=== PATIENT | female | born 1980 | race Caucasian/White ===

== ENCOUNTER 2017-05-07 14:17 | Emergency (ER) | payer OTHER, MEDICARE, MEDICAID ==
[~2017-05-07] VITALS: Ht 172.7 cm; Wt 72.6 kg
[~2017-05-07 14:17] MED LIST: ABILIFY20 MG PO; ALBUTEROL-200 PUFFS/ IH; ARIPIPRAZO10 MG/TABL PO; DOXYCYCLINE HY100 M3 PO; ETODOLAC400 MG PO; FLEXERIL10 MG PO; HYCODAN COUMPO473 ML PO; HYDROCODONE-APA1 TA1 PO; HYDROCODONE1 TABLE1 PO; HYDROCODONE1 TABLET PO; IBU-8800 MG PO; LORTAB 5/500 501 TAB PO; MEDROL 4MG. DOSE4 MG PO; MOTRIN400 MG PO; NAPROSYN 500MG500 MG PO; NOMEDS; NOMEDS XX; NORCO 325 MG-51 TAB PO; PAROXETINE HCL20 MG NG; PAXIL20 MG PO; PHENERGAN 25MG.25 M1 PO; PREDNISONE 20MG20 MG PO; PREMARIN 0.60.625 MG PO; REQUIP 1 MG TABL1 MG FT; ROPINIROLE HYDRO1 MG PO; TORADOL10 M1 PO; TORADOL10 MG PO; TRAMADOL 50MG T50 MG PO; TYLENOL ES500 MG PO; VICODIN1 TAB PO; Zofran4 MG PO
--- NOTE | 2017-05-07 14:41 | Emergency Room Report ---
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 N Clinical Suspician of Infection? N Mental Status: 1 - Regular (Normal Baseline) Sepsis Risk:Low Sepsis Risk Have you (or family members/close friends) recently traveled outside the [place]? N If Yes, where/when: Have you had exposure to infectious disease within the past month? N TB? Other? Specify: This is 37 yrs old wf brought by police due to drug use needing medical clearance for Shelter, she complained of cough and productive black, and it hurts when she cough. she denies hemoptysis, NVD. she denies palpitation. The patient claims that she has breast cancer and she has not received therapy and 6 months, also she has not seen her primary care physician in a year. Source patient, RN notes reviewed, police Exam Limitations no limitations ALLERGIES Coded Allergies: No Known Allergies (06/02/16) Home Medications Active Scripts HYDROCODONE/ACETAMINOPHEN (Vicodin 5-300 MG Tablet) 1 TAB PO Q6HP PRN pain #10 TAB Prov: 06/05/16 Albuterol (Albuterol-Hfa Inhaler) 2 PUFF IH Q4HP PRN SOB #1 INH Prov: 05/04/14 Reported Medications Conjugated Estrogens (Premarin 0.625MG) 0.625 MG PO DAILY ROPINIROLE HCL (Ropinirole 1MG) 1 MG PO QHS PAROXETINE HCL (Paroxetine Hcl) 20 MG NG DAILY #30 Aripiprazole 10 MG PO DAILY #30 MISCELLANEOUS (UNKNOWN MEDICATION) 1 KIM TP PRN SORE THROAT HYDROCODONE BIT/HOMATROP ME-BR (Hydromet Syrup) 473 ML PO Q6HP PRN COUGH History Medical History General CAD? No Angina: No HI: No Hypertension? No Hyperlipidemia? No CHF? No COPD? No Asthma? No Anemia? No Hernia? No Thyroid Problems? No Hypothyroidism? No CVA? Yes Seizures? No Diabetes? No End Stage Renal Disease? No UTI? Yes Stones? No GB Disease: No Nephritic Syndrome? No Asplenia? No Hepatitis? No Sickle Cell Disease? No Arthritis? No Cataracts? No Glaucoma? No MRSA? No TB? No Cancer? 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 Respiratory see HPI, cough, shortness of breath Cardiovascular see HPI, chest pain Gastrointestinal no symptoms reported Genitourinary no symptoms reported. Musculoskeletal no symptoms reported Skin no symptoms reported Psychiatric/Neurological no symptoms reported Physical Exam Vital Signs Vital Signs Date Time Temp Pulse Resp B/P Pulse O2 O2 Flow FiO2 Ox Delivery Rate 05/07 1422 97.5 98 18 135/88 98 she looks dishuffled (Yves ROBERTS,[facility]) - WBC >12,000 or <4,000 or 10% bands? 2 or more SIRS Criteria Met? B/P:135/88 MAP:103 Creatinine >2.0? UA output<0.5ml/kg/hr for 2 hrs? Platelet count >100,000? Lactate >2.0mmol/1? INR >1.2 or PTT > than 60 sec? Evidence of Organ Dysfunction? Provider documented clinical suspician of infection? N Sepsis Criteria Count: 1 Sepsis Risk: Low Sepsis Risk General Appearance normal appearance, WD/WN Eye Exam - bilateral eye normal exam, bilateral eye PERRL, bilateral eye EOMI Ear, Nose, Throat hearing grossly normal, normal ENT inspection Neck normal inspection, non-tender, supple, full range of motion Respiratory Status Yes: trachea midline, chest symmetrical, non tender chest. No: respiratory distress. Lung Sounds bilateral: normal breath sounds, lungs clear. Cardiovascular normal exam, regular rate/rhythm, no peripheral edema, no gallop, no JVD, no murmur, no rub, normal peripheral pulses Gastrointestinal normal bowel sounds, normal exam, non tender, soft, no organomegaly Back normal inspection, no CVA tenderness, no vertebral tenderness Extremities non-tender, normal range of motion, normal inspection Neurologic alert, steamer blocker II-XII nml as tested, normal exam, oriented x 3 Reflexes Reflexes normal Yes Mental status normal mood/affect Skin intact, normal color, warm/dry Medical Decision Making LABS/Meds/Orders Pt receiving controlled substance in ED? No Results/Orders Laboratory Tests 05/07/17 1536: Sodium 137, Potassium 4.8, Chloride 104, Carbon Dioxide 28, BUN 12, Creatinine 0.6, Estimated Creat Clear 146, Estimated GFR (MDRD) 112, Glucose Pending, Calcium 9.4, Total Bilirubin 0.6, AST 41 H, ALT 50, Alkaline Phosphatase 62, Creatine Kinase 114, CK-MB (CK-2) Rel Index 1.1, CK and CKMB Interp 1.2, Troponin I < 0.02, Total Protein 8.3 H, Albumin 3.8, Globulin 4.5 H, Albumin/ Globulin Ratio 0.8 L, D-Dimer Pending, WBC 7.9, RBC 5.73 H, Hgb 16.3 H, Hct 50.1 H, MCV 87.5, RDW 12.7, Plt Count 208, MPV 8.3, Gran % 79.7, Gran # 6.3, Lymphocytes % 15.4, Monocytes % 3.2, Eosinophils % 1.1, Basophils % 0.6, Lymphocytes # 1.2, Monocytes # 0.3, Eosinophils # 0.1, Basophils # 0.0, PUBS MCHC 32.5, MCH 28.4, Alcohols 0 05/07/17 1456: Opiates Screen POSITIVE H, Urine Methadone Screen NEGATIVE, Barbiturates NEGATIVE, Phencyclidine Screen NEGATIVE, Amphetamines Screen POSITIVE H, Benzodiazepines Screen NEGATIVE, Cocaine Screen POSITIVE H, Marijuana (THC) Screen NEGATIVE, Urine Color YELLOW, Urine Appearance SL CLOUDY, Urine pH 6.5, Ur Specific [place] 1.025, Urine Protein NEGATIVE, Urine Ketones NEGATIVE, Urine Blood NEGATIVE, Urine Nitrate NEGATIVE, Urine Bilirubin NEGATIVE, Urine Urobilinogen 0.2, Ur Leukocyte Esterase NEGATIVE, Urine WBC OCC, Ur Squamous Epith Cells 5-10, Urine Bacteria 4+, Urine Mucus 4+, Urine Glucose NEGATIVE Current Medication Orders Sig/Zuleyka Start time Last Medication Dose Route Stop Time Status Admin Albuterol 2 PUFFS ONCE ONE 05/07 1545 DC IH 05/07 1546 Azithromycin 500 MG ONCE ONE 05/07 1545 DC PO 05/07 1546 Miscellaneous 1 UNIT ONCE ONE 05/07 1545 DC XX 05/07 1546 Albuterol/Ipratropium 0 .STK-MED ONE 05/07 1446 DC INH Albuterol/Ipratropium 3 ML ONCE ONE 05/07 1445 DC 05/07 INH 05/07 144 1445 Ceftriaxone Sodium 1 GM ONCE ONE 05/07 144 DC Sodium Chloride 50 ML IV 05/07 1514 Orders Procedure Date/time Status RT REQUEST ALBUTEROL INHALER 05/07 154 Active CULTURE, URINE 05/07 1456 Active URINALYSIS/COMPLETE 05/07 144 Complete URINE 05/07 144 Complete DRUG ABUSE SCREEN (10) 05/07 144 Complete D-DIMER 05/07 144 Active ALCOHOL 05/07 144 Complete ELECTROCARDIOGRAM REQUEST 05/07 143 Active RT REQUEST DUONEB 05/07 143 Active CHEST(2 VIEWS-NOT PORTABLE) 05/07 143 Active CULTURE, SPUTUM 05/07 1435 Active CULTURE, BLOOD 05/07 1435 Active LACTIC ACID 05/07 1435 Active CBC WITH AUTO DIFF 05/07 1435 Complete CARDIAC ENZYMES 05/07 1435 Active CHEM 12 PROFILE 05/07 1435 Active 12 LEAD EKG-YOLY (INITIAL) 05/07 UNK Active 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 XRAY/CT/US XRAY/CT/US XRAY chest, NO ACUTE FINDINGS XR interpretation by reviewed by me Xray Results normal/NAD, no infiltrates Departure Departure Time of Disposition 1440 Disposition DC Home or Self Care(routine) Clinical Impression Primary Impression: Reactive airway disease Secondary Impressions: Breast cancer, Drug use, Medical clearance for incarceration, Tobacco use Condition STABLE Referrals Fracisco ROBERTS,Leonard Hathaway (Family) Additional Instructions The patient felt better and sounded better after the neb treatment. Her chest x- ray was negative for infiltrates. The nursing staff was unable to obtain IV access. Started on by mouth antibiotics and albuterol inhaler. She was released in a stable condition in the custody of the police reserves commander WHO BROUGHT HER. SHE IS TO continue antibiotics until finished She is to follow-up with her primary care physician in AM. The patient was given verbal instructions and was released to retirement in police custody. Discharge Counseling Counseled pt/family regarding diagnosis, test results, medications/RX, home care, follow up needs Prescriptions Current Visit Scripts Azithromycin (Zithromax) 250 MG PO DAILY #5 TAB USE DIRECTED. ALBUTEROL (Proventil Hfa Inhaler) 1-2 PUFF IH Q4-6H PRN #1 CAN Ref 2 ED Critical Care Critical Care No If Critical Care minutes are documented, the time involved in the performance of seperately reportable procedures was not counted toward critical care time documented. I directly delivered medical care to this critically ill and/or injured patient. Timely evaluation and treatment was necessary to address the significant organ system(s) dysfunction present in this patient. at 1749
--- NOTE | 2017-05-07 14:41 | Emergency Room Report ---
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 N Clinical Suspician of Infection? N Mental Status: 1 - Regular (Normal Baseline) Sepsis Risk:Low Sepsis Risk Have you (or family members/close friends) recently traveled outside the [place]? N If Yes, where/when: Have you had exposure to infectious disease within the past month? N TB? Other? Specify: This is 37 yrs old wf brought by police due to drug use needing medical clearance for Retirement, she complained of cough and productive black, and it hurts when she cough. she denies hemoptysis, NVD. she denies palpitation. The patient claims that she has breast cancer and she has not received therapy and 6 months, also she has not seen her primary care physician in a year. Source patient, RN notes reviewed, police Exam Limitations no limitations ALLERGIES Coded Allergies: No Known Allergies (06/02/16) Home Medications Active Scripts HYDROCODONE/ACETAMINOPHEN (Vicodin 5-300 MG Tablet) 1 TAB PO Q6HP PRN pain #10 TAB Prov: 06/05/16 Albuterol (Albuterol-Hfa Inhaler) 2 PUFF IH Q4HP PRN SOB #1 INH Prov: 05/04/14 Reported Medications Conjugated Estrogens (Premarin 0.625MG) 0.625 MG PO DAILY ROPINIROLE HCL (Ropinirole 1MG) 1 MG PO QHS PAROXETINE HCL (Paroxetine Hcl) 20 MG NG DAILY #30 Aripiprazole 10 MG PO DAILY #30 MISCELLANEOUS (UNKNOWN MEDICATION) 1 KIM TP PRN SORE THROAT HYDROCODONE BIT/HOMATROP ME-BR (Hydromet Syrup) 473 ML PO Q6HP PRN COUGH History Medical History General CAD? No Angina: No GA: No Hypertension? No Hyperlipidemia? No CHF? No COPD? No Asthma? No Anemia? No Hernia? No Thyroid Problems? No Hypothyroidism? No CVA? Yes Seizures? No Diabetes? No End Stage Renal Disease? No UTI? Yes Stones? No GB Disease: No Nephritic Syndrome? No Asplenia? No Hepatitis? No Sickle Cell Disease? No Arthritis? No Cataracts? No Glaucoma? No MRSA? No TB? No Cancer? 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 Respiratory see HPI, cough, shortness of breath Cardiovascular see HPI, chest pain Gastrointestinal no symptoms reported Genitourinary no symptoms reported. Musculoskeletal no symptoms reported Skin no symptoms reported Psychiatric/Neurological no symptoms reported Physical Exam Vital Signs Vital Signs Date Time Temp Pulse Resp B/P Pulse O2 O2 Flow FiO2 Ox Delivery Rate 05/07 1422 97.5 98 18 135/88 98 she looks dishuffled (Yves ROBERTS,[facility]) - WBC >12,000 or <4,000 or 10% bands? 2 or more SIRS Criteria Met? B/P:135/88 MAP:103 Creatinine >2.0? UA output<0.5ml/kg/hr for 2 hrs? Platelet count >100,000? Lactate >2.0mmol/1? INR >1.2 or PTT > than 60 sec? Evidence of Organ Dysfunction? Provider documented clinical suspician of infection? N Sepsis Criteria Count: 1 Sepsis Risk: Low Sepsis Risk General Appearance normal appearance, WD/WN Eye Exam - bilateral eye normal exam, bilateral eye PERRL, bilateral eye EOMI Ear, Nose, Throat hearing grossly normal, normal ENT inspection Neck normal inspection, non-tender, supple, full range of motion Respiratory Status Yes: trachea midline, chest symmetrical, non tender chest. No: respiratory distress. Lung Sounds bilateral: normal breath sounds, lungs clear. 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 No Results/Orders Laboratory Tests 05/07/17 1536: Sodium 137, Potassium 4.8, Chloride 104, Carbon Dioxide 28, BUN 12, Creatinine 0.6, Estimated Creat Clear 146, Estimated GFR (MDRD) 112, Glucose Pending, Calcium 9.4, Total Bilirubin 0.6, AST 41 H, ALT 50, Alkaline Phosphatase 62, Creatine Kinase 114, CK-MB (CK-2) Rel Index 1.1, CK and CKMB Interp 1.2, Troponin I < 0.02, Total Protein 8.3 H, Albumin 3.8, Globulin 4.5 H, Albumin/ Globulin Ratio 0.8 L, D-Dimer Pending, WBC 7.9, RBC 5.73 H, Hgb 16.3 H, Hct 50.1 H, MCV 87.5, RDW 12.7, Plt Count 208, MPV 8.3, Gran % 79.7, Gran # 6.3, Lymphocytes % 15.4, Monocytes % 3.2, Eosinophils % 1.1, Basophils % 0.6, Lymphocytes # 1.2, Monocytes # 0.3, Eosinophils # 0.1, Basophils # 0.0, PUBS MCHC 32.5, MCH 28.4, Alcohols 0 05/07/17 1456: Opiates Screen POSITIVE H, Urine Methadone Screen NEGATIVE, Barbiturates NEGATIVE, Phencyclidine Screen NEGATIVE, Amphetamines Screen POSITIVE H, Benzodiazepines Screen NEGATIVE, Cocaine Screen POSITIVE H, Marijuana (THC) Screen NEGATIVE, Urine Color YELLOW, Urine Appearance SL CLOUDY, Urine pH 6.5, Ur Specific [place] 1.025, Urine Protein NEGATIVE, Urine Ketones NEGATIVE, Urine Blood NEGATIVE, Urine Nitrate NEGATIVE, Urine Bilirubin NEGATIVE, Urine Urobilinogen 0.2, Ur Leukocyte Esterase NEGATIVE, Urine WBC OCC, Ur Squamous Epith Cells 5-10, Urine Bacteria 4+, Urine Mucus 4+, Urine Glucose NEGATIVE Current Medication Orders Sig/Zuleyka Start time Last Medication Dose Route Stop Time Status Admin Albuterol 2 PUFFS ONCE ONE 05/07 1545 DC IH 05/07 1546 Azithromycin 500 MG ONCE ONE 05/07 1545 DC PO 05/07 1546 Miscellaneous 1 UNIT ONCE ONE 05/07 1545 DC XX 05/07 1546 Albuterol/Ipratropium 0 .STK-MED ONE 05/07 1446 DC INH Albuterol/Ipratropium 3 ML ONCE ONE 05/07 1445 DC 05/07 INH 05/07 144 1445 Ceftriaxone Sodium 1 GM ONCE ONE 05/07 144 DC Sodium Chloride 50 ML IV 05/07 1514 Orders Procedure Date/time Status RT REQUEST ALBUTEROL INHALER 05/07 154 Active CULTURE, URINE 05/07 1456 Active URINALYSIS/COMPLETE 05/07 144 Complete URINE 05/07 144 Complete DRUG ABUSE SCREEN (10) 05/07 144 Complete D-DIMER 05/07 144 Active ALCOHOL 05/07 144 Complete ELECTROCARDIOGRAM REQUEST 05/07 143 Active RT REQUEST DUONEB 05/07 143 Active CHEST(2 VIEWS-NOT PORTABLE) 05/07 143 Active CULTURE, SPUTUM 05/07 1435 Active CULTURE, BLOOD 05/07 1435 Active LACTIC ACID 05/07 1435 Active CBC WITH AUTO DIFF 05/07 1435 Complete CARDIAC ENZYMES 05/07 1435 Active CHEM 12 PROFILE 05/07 1435 Active 12 LEAD EKG-YOLY (INITIAL) 05/07 UNK 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 XRAY/CT/US XRAY/CT/US XRAY chest, NO ACUTE FINDINGS XR interpretation by reviewed by me Xray Results normal/NAD, no infiltrates Departure Departure Time of Disposition 1440 Disposition DC Home or Self Care(routine) Clinical Impression Primary Impression: Reactive airway disease Secondary Impressions: Breast cancer, Drug use, Medical clearance for incarceration, Tobacco use Condition STABLE Referrals Fracisco ROBERTS,Leonard Hathaway (Family) Additional Instructions The patient felt better and sounded better after the neb treatment. Her chest x- ray was negative for infiltrates. The nursing staff was unable to obtain IV access. Started on by mouth antibiotics and albuterol inhaler. She was released in a stable condition in the custody of the police sergeant precinct WHO BROUGHT HER. SHE IS TO continue antibiotics until finished She is to follow-up with her primary care physician in AM. The patient was given verbal instructions and was released to detention in police custody. Discharge Counseling Counseled pt/family regarding diagnosis, test results, medications/RX, home care, follow up needs Prescriptions Current Visit Scripts Azithromycin (Zithromax) 250 MG PO DAILY #5 TAB USE DIRECTED. ALBUTEROL (Proventil Hfa Inhaler) 1-2 PUFF IH Q4-6H PRN #1 CAN Ref 2 ED Critical Care Critical Care No If Critical Care minutes are documented, the time involved in the performance of seperately reportable procedures was not counted toward critical care time documented. I directly delivered medical care to this critically ill and/or injured patient. Timely evaluation and treatment was necessary to address the significant organ system(s) dysfunction present in this patient. at [id number]
[2017-05-07 15:12] LABS: URINE BILIRUBIN - DIPSTICK NEGATIVE (NEG); URINE BLOOD NEGATIVE (NEG)
[2017-05-07 15:22] LABS: AMPHETAMINES/METAMPHETAMINES POSITIVE ng/mL (<1000)
[2017-05-07] MEDS ORDERED: ZITHROMAX Z-PA250 M2 PO (15:47)
[2017-05-07] MEDS ORDERED: PROVENTIL0.09 MG/A1 IH (15:48)
[2017-05-07 15:52] LABS: HEMOGLOBIN 16.3 g/dL (12.2-16.2); LYMPH # 1.2 K/mm3 (0.7-4.5); LYMPH % 15.4 % (10-50.0)
[2017-05-07 16:18] LABS: BUN 12 mg/dL (7-18)
[2017-05-07 16:21] LABS: GFR (ESTIMATED) 112 ML/MIN (59-)
--- NOTE | 2017-05-07 16:28 | RADIOLOGY REPORT PS360 ---
CHEST(2 VIEWS-NOT PORTABLE) INDICATION: Chest pain and shortness of breath COMPARISON: PA and lateral chest 08/31/2014 FINDINGS: The lung bhardwaj are well expanded and appear clear of infiltrate. The cardiomediastinal silhouette and vascularity are normal. The costophrenic angles are clear. The bony thorax is normal. IMPRESSION: Normal chest.
[2017-05-07 16:43] VITALS: BP 125/70
== END 2017-05-07 16:43 | disposition home or self-care (01) ==
LOC: ER 14:17
PROVIDERS: Emergency Medicine
DX: Z02.89 Encounter for other administrative examinations (principal); J45.909 Unspecified asthma, uncomplicated; Z72.0 Tobacco use; F11.10 Opioid abuse, uncomplicated; C50.919 Malignant neoplasm of unspecified site of unspecified female breast